=== PATIENT | male | born 1955 | race Caucasian/White ===

== ENCOUNTER → 2020-01-24 09:09 | Outpatient (CLI) | payer MEDICARE, SELFPAY ==
--- NOTE | ~2020-01-24 | XR_ITS ---
EXAMINATION: XR chest 2V DATE: 01/24/2020 09:28 INDICATION: Shortness of breath. TECHNIQUE: Frontal and lateral views of the chest were obtained. COMPARISON: Chest CT 02/10/2017 FINDINGS: There is mild atelectasis in the lower lung zones. No pleural effusion or pneumothorax. The heart size is normal. IMPRESSION: 1. Mild atelectasis in the lower lung zones. Reviewed, dictated and finalized at location A.
== END ==
PROVIDERS: PCP Internal Medicine; Visit Provider Internal Medicine
DX: R06.02 Shortness of breath (principal); R91.8 Other nonspecific abnormal finding of lung field
CPT/HCPCS: 71046

== ENCOUNTER → 2020-11-19 06:55 | Outpatient (CLI) | payer MEDICARE, SELFPAY ==
[2020-11-19 17:21] LABS: SARS-CoV-2 RNA PCR Negative
== END ==
PROVIDERS: PCP Internal Medicine; Visit Provider Internal Medicine
DX: Z20.822 Contact with and (suspected) exposure to COVID-19 (principal); R68.89 Other general symptoms and signs
CPT/HCPCS: C9803; U0003; U0005

== ENCOUNTER 2021-01-07 07:28 | Outpatient (CLI) | payer MEDICARE, SELFPAY ==
--- NOTE | ~2021-01-07 | US_ITS ---
EXAMINATION: US aorta [facility] DATE: 01/07/2021 08:03 INDICATION: Abdominal aortic aneurysm screening. TECHNIQUE: Grayscale, color Doppler, and pulsed Doppler images of the aorta and common iliac arteries were obtained. COMPARISON: None. FINDINGS: The aorta is normal in caliber. The right common iliac artery is normal in caliber. The left common i liac artery is normal in caliber. IMPRESSION: 1. No abdominal aortic aneurysm. Reviewed, dictated and finalized at location A.
--- NOTE | 2021-01-07 07:53 | ECG_ITS ---
Measurements Intervals [place] Rate: 79 P: 67 OR: 162 QRS: 65 QRSD: 112 T: 72 QT: 418 QTc: 481 Interpretive Statements SINUS RHYTHM INTRAVENTRICULAR CONDUCTION DELAY BORDERLINE ST-T WAVE ABNORMALITY- INF/HIGH LAT LEADS BORDERLINE ECG Electronically Signed On 01-07-2021 8:06:32 CDT by Bertrand Cheatham D.O.
== END 2021-01-07 07:29 | disposition home or self-care (01) ==
PROVIDERS: PCP Internal Medicine; Visit Provider Internal Medicine
DX: Z13.6 Encounter for screening for cardiovascular disorders (principal); I45.9 Conduction disorder, unspecified
CPT/HCPCS: 76706; 93005

== ENCOUNTER 2022-02-13 06:03 | Emergency (ER) | payer MEDICARE, SELFPAY ==
--- NOTE | ~2022-02-13 | CT_ITS ---
IMPRESSION: 1. No acute intracranial abnormality. EXAMINATION: CT brain wo con INDICATION: Diplopia COMPARISON: None TECHNIQUE: Standard unenhanced head CT. The dose-length product (DLP) was 605.33 mGy-cm. The mA was a djusted according to patient size. Iterative reconstruction technique was employed. FINDINGS: There is no intracranial hemorrhage, acute infarction, or abnormal mass lesion. The ventric les are normal. There is no abnormal mass effect or midline shift. The cintron-white matter differentiat ion is normal. The basal cisterns are patent. The orbits are normal. The paranasal sinuses, mastoids and calvarium are normal. IMPRESSION: 1. No acute intracranial abnormality. Reviewed, dictated and finalized at location A.
[2022-02-13 06:07] VITALS: BP 183/127; PULSE 83; RESP 18; TEMP 36.4; O2SAT 98
--- NOTE | 2022-02-13 07:06 | ECG_ITS ---
Measurements Intervals [place] Rate: 88 P: 61 OR: 163 QRS: 61 QRSD: 110 T: 71 QT: 388 QTc: 472 Interpretive Statements SINUS RHYTHM COMPARED TO ECG 01/07/2021 07:59:04 NO SIGNIFICANT CHANGES Electronically Signed On 02-13-2022 9:28:05 CDT by Hodan Holley M.D.
--- NOTE | 2022-02-13 07:07 | ED.EYEPROB ---
HPI - Eye Problem General Chief complaint: Eye Problems Stated complaint: eye difficulty Time Seen by Provider: 02/13/22 06:52 History of Present Illness HPI Narrative: 67-year-old male presenting to the emergency department for evaluation of double vision that started approximately 5 PM last night. Patient states that he found he was looking at the phone and realized that he had acute onset of double vision. Double vision is worse when looking to the right. Patient denies any other change in vision. Patient denies any other symptoms. Patient denies any headache. Patient has had issues with hypertension. Patient does take medications for his blood pressure, patient reports he did miss his blood pressure medication this morning. Related Data Home Medications Medication Instructions Recorded Confirmed loratadine 10 mg tablet 10 mg PO DAILY 09/14/19 10/26/21 Allergies Allergy/AdvReac Type Severity Reaction Status Date / Time No Known Allergies Allergy Verified 02/13/22 08:50 Review of Systems Review of Systems: CONSTITUTIONAL: Denies fever, chills, or sweats. EYES: See HPI ENT: Denies rhinorrhea, congestion, sore throat, or otalgia. CARDIOVASCULAR: Denies chest pain, palpitations, or edema. RESPIRATORY: Denies cough or dyspnea. GASTROINTESTINAL: Denies abdominal pain, nausea, vomiting, or diarrhea. GENITOURINARY: Denies dysuria or hematuria. SKIN: Denies rash or itching. MUSCULOSKELETAL: Denies back pain, joint pain, or myalgia. NEUROLOGIC: Denies headache, numbness, or weakness. [facility] Family History Family History Father Family history of coronary artery disease Social History Social History Smoking status: Former smoker Smoking end date: 09/12/12 Alcohol intake: current Exam Narrative: APPEARANCE: Well appearing, no pain, no distress, well-nourished. HEAD: normocephalic, atraumatic. EYES: No double vision when looking to the left. Double vision when looking to the right. Left eye does not track well past the midline when looking to the right NOSE: Normal no drainage EARS:TMS clear with good light reflex. THROAT: Pharynx clear, no exudate. NECK: Supple. No adenopathy, no masses. RESPIRATORY: Airway patent, respirations nonlabored. Clear to auscultation bilaterally, no rales, rhonchi, wheezing. CARDIOVASCULAR: Regular rate and rhythm without murmurs rubs or gallops. ABDOMINAL: Soft, nontender, nondistended, normal bowel sounds MUSCULOSKELETAL: Moves all extremities. Strength/ROM intact, No edema, No calf tenderness. NEURO: Alert. Cranial nerves II through XII intact. Good gait. Good coordination SKIN: Warm, dry. Normal Color PSYCHIATRIC: Normal affect/mood. Course Course Emergency Course: Patient was updated on the results of his CT scan. 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 Case was discussed with neurology at [facility], and ophthalmology at [facility]. Patient was accepted for transfer to the emergency department. Consultations Consultation #1: [facility] neurology, Dr. Carrington was consulted and also felt this was a cranial nerve issue. He did recommend follow-up with ophthalmology. Ophthalmology was paged for consult. Consultation #2: Dr Sanon for ophthalmology did recommend transfer to the ED for further evaluation. Patient was amenable to this. Patient declined transport by ambulance and prefers transport by private vehicle. The risks of this were discussed. Case was also discussed Dr. Montes in the ED. Prior to discharge patient's blood pressure was improved. Vital Signs Vital signs: Vital Signs Temperature 97.6 F 02/13/22 06:07 Pulse Rate 83 02/13/22 06:07 Respiratory Rate 18 02/13/22 06:07 Blood Pressure 183/127 H 02/13/22 06:07 Pulse Oximetry 98 02/13/22 06:07 Oxygen Delivery Room Air 02/13/22 06:07 Temperature 97.6 F 02/13/22 06:07 Pulse Rate
[2022-02-13 07:32] VITALS: BP 189/127; PULSE 89; RESP 18; O2SAT 96
[2022-02-13 08:06] LABS: Basophils Percent Auto 0.5 % (0.2-1.2); Eosinophils Absolute Auto 0.2 K/mm3 (0-0.3); Hematocrit 44.7 % (42.0-52.0); Hemoglobin 14.3 g/dL (14.0-18.0); Immature Granulocyte Absolute 0.02 K/mm3 (0.00-0.031); Immature Granulocyte Percent A 0.3 % (0-0.5); Lymphocytes Absolute Auto 1.36 K/mm3 (0.9-3.2); Lymphocytes Percent Auto 22.7 % (18.3-44.2); Mean Corpuscular Hemoglobin 28.3 pg (26-34); Mean Corpuscular Volume 88.3 fl (80-100); Mean Platelet Volume 9.7 fl (7.4-10.4); Monocytes Absolute Auto 0.6 K/mm3 (0.1-0.6); Monocytes Percent Auto 9.8 % (2.6-8.5); Neutrophils Absolute Auto 3.8 K/mm3 (1.3-6.7); Neutrophils Percent Auto 62.7 % (45.5-73.1); Platelet Count Result 222 k/mm3 (150-375); Red Blood Count 5.06 M/mm3 (4.6-6.20); Red Cell Distribution Width 14.7 % (11.5-14.5)
[2022-02-13 08:16] LABS: INR 0.9; Partial Thromboplastin Time 26.4 SECONDS (22.3-36.8); Prothrombin Time 12.2 Seconds (11.1-14.7)
[2022-02-13 08:19] LABS: Alanine Aminotransferase 52 U/L (6-50); Albumin Level 4.4 g/dL (3.5-5.1); Alkaline Phosphatase 77 U/L (38-126); Anion Gap 6 mmol/L (8-16); Aspartate Amino Transferase 44 U/L (17-59); Bilirubin,Total 0.2 mg/dL (0.2-1.3); Blood Urea Nitrogen 15 mg/dL (9-20); Calcium 8.9 mg/dL (8.4-10.2); Carbon Dioxide 25 mmol/L (22-30); Chloride 107 mmol/L (98-107); Estimated CRCL calculation 82 ml/min; Estimated Glomerular Filt Rate > 60; Glucose 121 mg/dL (65-110); Potassium 4.5 mmol/L (3.4-5.0); Sodium 138 mmol/L (137-145)
[2022-02-13] MEDS: LOSARTAN POTASSIUM 100 MG TABLET PO (09:04)
[2022-02-13] MEDS: hydrALAZINE HCL 20 MG/ML VIAL 10 MG IV PUSH ×2 (09:06→10:24)
[2022-02-13 09:11] VITALS: BP 191/125; PULSE 92; RESP 18; O2SAT 96
[2022-02-13 09:49] VITALS: BP 176/115; PULSE 93; RESP 18; O2SAT 97
[2022-02-13 10:25] VITALS: BP 186/125
--- NOTE | 2022-02-13 10:26 | PC.NURSE ---
Report to NICK Farnsworth at [facility].
[2022-02-13 10:42] VITALS: BP 162/120; PULSE 100; RESP 20; O2SAT 97
--- NOTE | 2022-02-13 10:43 | PC.NURSE ---
Pt declined EMS transport and family will drive pt to [facility] ER by private vehicle.
== END 2022-02-13 10:50 | disposition short-term general hospital (02) ==
PROVIDERS: Emergency Provider Emergency Medicine; PCP Internal Medicine
DX: H49.00 Third [oculomotor] nerve palsy, unspecified eye (principal); I10 Essential (primary) hypertension; Z87.891 Personal history of nicotine dependence
CPT/HCPCS: 36415; 70450; 80053; 84443; 85025; 85610; 85730; 93005; 96374; 96376; 99284; A9270; J0360

== ENCOUNTER → 2022-04-26 02:17 | Outpatient (CLI) | payer MEDICARE, SELFPAY ==
[2022-04-26 11:08] LABS: SARS-CoV-2 RNA PCR Negative
== END ==
PROVIDERS: PCP Family Medicine; Visit Provider Internal Medicine Critical Care Medicine
DX: R68.89 Other general symptoms and signs (principal); Z20.822 Contact with and (suspected) exposure to COVID-19
CPT/HCPCS: C9803; U0003; U0005

== ENCOUNTER 2022-05-10 13:12 | Emergency (ER) | payer MEDICARE, SELFPAY ==
[2022-05-10 13:31] VITALS: BP 144/93; PULSE 83; RESP 20; TEMP 36.4; O2SAT 94
--- NOTE | 2022-05-10 13:58 | ED.URI ---
HPI - URI/Sore Throat General Chief Complaint: Shortness of Breath/Dyspnea Stated Complaint: Shortness Of Breathe Time Seen by Provider: 05/10/22 13:59 Source: patient, RN notes reviewed and old records reviewed Mode of arrival: ambulatory Limitations: no limitations History of Present Illness HPI Narrative: 67-year-old male with a history of a stroke in January, hypertension, high cholesterol presents to the [facility] with increasing shortness of breath. Mild symptoms started at the end of January when he was discharged from the hospital post stroke. Over the last couple weeks the shortness of breath, edema to the bilateral lower legs have gotten worse. Patient is unable to lay flat over the last couple of weeks. Describes a chest fullness without chest pain. Unable to walk more than 20 feet without getting short of breath Related Data Home Medications Medication Instructions Recorded Confirmed aspirin 81 mg chewable tablet 81 mg PO DAILY 02/22/22 02/22/22 atorvastatin 40 mg tablet 40 mg PO DAILY 02/22/22 02/22/22 Allergies Allergy/AdvReac Type Severity Reaction Status Date / Time No Known Allergies Allergy Verified 04/15/22 12:02 Review of Systems Review of Systems: All systems reviewed & are unremarkable except as noted in HPI and below Constitutional: Constitutional: Reports no additional constitutional complaints, Denies chills and Denies fever(s) Eyes: Eyes: Reports no additional eye complaints ENT: Reports system reviewed and no additional complaints, except as documented Cardiovascular: Cardiovascular: Reports as per HPI, Denies chest pain and Denies rapid heart rate Respiratory: Respiratory: Reports as per HPI, Denies chest congestion, Denies cough, Reports dyspnea and Reports wheezing Gastrointestinal: Gastrointestinal: Reports no additional gastrointestinal complaints Musculoskeletal: Musculoskeletal: Reports as per HPI Integumentary/Breasts: Skin/Breast: Reports system reviewed and no additional complaints, except as docu Neurologic: Reports system reviewed and no additional complaints, except as documented Psychiatric: Psychiatric: Reports no additional psychiatric complaints Allergic/Immunologic: Allergic/Immunologic: Reports no additional allergic/immunologic complaints [facility] Past Medical History Medical History (Updated 05/10/22 @ 14:31 by Stacey Keating APRN) Asthma COPD with asthma Diabetes Dyspnea History of smoking 30 or more pack years Hypertension Obesity (BMI 30.0-34.9) RIND (reversible ischemic neurologic deficit) SOB (shortness of breath) on exertion Family History Family History Father Family history of coronary artery disease Social History Social History Smoking status: Former smoker Smoking end date: 09/12/12 Alcohol intake: current Comments At the time of my signature, I reviewed and agree with the nursing past medical, surgical, social, and family history. There is no relevant family history pertinent to the patient complaint. Exam Const: General: no acute distress, well developed, alert, ill appearing chronically, uncomfortable and well groomed; No diaphoretic Nutritional Appearance: well nourished and obese morbidly obese Orientation/consciousness: patient oriented x3 Limitations: no limitations HENMT: Head: normal to inspection Ears: external ears normal Eyes: General: appearance normal, both eyes and all related structures Pupils: Equal, round and reactive pupils present Neck: Neck: normal visual inspection, no lymphadenopathy and no meningeal signs Chest: Chest palpation & inspection: normal inspection of the chest Resp: Effort & Inspection: normal respiratory effort and no use of accessory muscles Auscultation: crackles, no rales, no rhonchi and wheezes Cardio: Rate: regular rate Rhythm: regular rhythm Peripheral pulses: radial pul
--- NOTE | 2022-05-10 14:01 | ECG_ITS ---
Measurements Intervals [place] Rate: 82 P: 79 [place]: 185 QRS: 66 QRSD: 116 T: 69 QT: 394 QTc: 462 Interpretive Statements SINUS RHYTHM WITH OCCASIONAL VENTRICULAR PREMATURE COMPLEXES MINOR T-WAVE ABNORMALITY] COMPARED TO ECG 02/13/2022 07:37:14 PVC IS NOW SEEN Electronically Signed On 05-10-2022 17:10:15 CDT by Hermelindo Baker M.D.
== END 2022-05-10 14:18 | disposition short-term general hospital (02) ==
PROVIDERS: Emergency Provider Nurse Practitioner; PCP Family Medicine
DX: R06.02 Shortness of breath (principal); R60.0 Localized edema; Z87.891 Personal history of nicotine dependence; J44.9 Chronic obstructive pulmonary disease, unspecified; E11.9 Type 2 diabetes mellitus without complications; I10 Essential (primary) hypertension; Z86.73 Personal history of transient ischemic attack (TIA), and cerebral infarction without residual deficits; Z79.82 Long term (current) use of aspirin; E66.9 Obesity, unspecified; Z68.32 Body mass index [BMI] 32.0-32.9, adult
CPT/HCPCS: 93005; 99213; G0463

== ENCOUNTER 2022-05-10 14:33 | Emergency (ER) | payer MEDICARE, SELFPAY ==
--- NOTE | ~2022-05-10 | XR_ITS ---
EXAMINATION: XR chest 1V portable Exam Date/Time: 05/10/2022 15:30 CDT HISTORY: sob Comparison: 01/24/2020. RESULT: Lines, tubes, and devices: None. Lungs and pleura: Mild senescent change, otherwise clear. Cardiomediastinal silhouette: Stable. Other: No acute osseous or upper abdominal finding. IMPRESSION: No acute cardiopulmonary process. Reviewed, dictated and finalized at location K.
--- NOTE | ~2022-05-10 | CT_ITS ---
EXAMINATION: CTA chest PE protocol DATE: 05/10/2022 16:51 INDICATION: Increasing shortness of breath for one week. History of COPD. TECHNIQUE: Computed tomography angiography (CTA) of the chest was performed with 100 mL Omnipaque-350 intravenous contrast timed to evaluate the pulmonary arteries. Coronal maximum intensity projection 3D-reconstructions were created by the technologist. Automated exposure control and iterative reconst ruction technique were employed. Exam dose: 1434.33 mGy-cm total exam DLP. COMPARISON: 05/10/2022 portable AP chest 02/10/[address] lung cancer screening FINDINGS: There is moderate opacification of the pulmonary arteries on the second injection and repea t scan. No pulmonary embolism is evident. No thoracic aortic aneurysm or dissection. Normal heart size. No pericardial or pleural effusion. 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 Moderate emphysematous changes, most prominent in the upper lung zones, particularly in the apices. N o pulmonary infiltrate or consolidation.. Normal morphology of the adrenal glands. There is hepatic steatosis. Status post cholecystectomy. Included skeletal structures are unremarkable. IMPRESSION: COPD; no evidence of pulmonary embolism Reviewed, dictated and finalized at Location A. Reviewed, dictated and finalized at location B.
[2022-05-10 14:45] VITALS: BP 168/96; PULSE 92; RESP 16; TEMP 36.6; O2SAT 94
[2022-05-10 15:01] VITALS: BP 133/86; PULSE 89; RESP 18; O2SAT 94
--- NOTE | 2022-05-10 15:02 | ECG_ITS ---
Measurements Intervals [place] Rate: 91 P: 76 [place]: 180 QRS: 64 QRSD: 110 T: 68 QT: 376 QTc: 463 Interpretive Statements SINUS RHYTHM WITHIN NORMAL LIMITS COMPARED TO ECG 05/10/2022 14:11:47 NO PVCS Electronically Signed On 05-10-2022 17:12:23 CDT by Hermelindo Baker M.D.
[2022-05-10 15:15] LABS: Basophils Absolute Auto 0.1 K/mm3 (0.0-0.1); Basophils Percent Auto 0.8 % (0.2-1.2); Eosinophils Absolute Auto 0.7 K/mm3 (0-0.3); Eosinophils Percent Auto 9.2 % (0-4.4); Hematocrit 40.2 % (42.0-52.0); Hemoglobin 12.9 g/dL (14.0-18.0); Immature Granulocyte Absolute 0.04 K/mm3 (0.00-0.031); Immature Granulocyte Percent A 0.5 % (0-0.5); Mean Corpuscular HGB Conc 32.1 g/dl (32-36); Mean Corpuscular Hemoglobin 28.2 pg (26-34); Mean Platelet Volume 9.7 fl (7.4-10.4); Monocytes Absolute Auto 0.6 K/mm3 (0.1-0.6); Monocytes Percent Auto 7.9 % (2.6-8.5); Neutrophils Absolute Auto 4.6 K/mm3 (1.3-6.7); Neutrophils Percent Auto 62.6 % (45.5-73.1); Platelet Count Result 302 k/mm3 (150-375); Red Blood Count 4.57 M/mm3 (4.6-6.20); Red Cell Distribution Width 14.3 % (11.5-14.5); White Blood Count 7.4 K/mm3 (4.5-10.0)
[2022-05-10 15:28] LABS: INR 0.9; Prothrombin Time 11.9 Seconds (11.1-14.7)
[2022-05-10 15:29] LABS: Partial Thromboplastin Time 26.2 SECONDS (22.3-36.8)
[2022-05-10 15:30] LABS: Alveolar/Arterial O2 Gradient 56.6 mmHg; Carboxyhemoglobin 0.5 % THb (0-2.0); Fractional Inspired Oxygen 21 %; HCO3 ABG 28.8 mEq/l (22.0-26.0); Methemoglobin ABG 0.3 %THb (0-1.5); Oxygen Content ABG 12.6 %vol (16.0-22.0); PCO2 ABG 48.8 mmHg (35.0-45.0); PO2 FiO2 Ratio Arterial Blood 1.65 %; Total Hemoglobin 13.6 g/dL (12.0-18.0); pH ABG 7.389 (7.350-7.450)
[2022-05-10 15:32] LABS: Alanine Aminotransferase 74 U/L (6-50); Albumin Level 4.7 g/dL (3.5-5.1); Alkaline Phosphatase 81 U/L (38-126); Anion Gap 10 mmol/L (8-16); Aspartate Amino Transferase 54 U/L (17-59); Bilirubin,Total 0.4 mg/dL (0.2-1.3); Blood Urea Nitrogen 14 mg/dL (9-20); Calcium 9.5 mg/dL (8.4-10.2); Carbon Dioxide 27 mmol/L (22-30); Chloride 97 mmol/L (98-107); Estimated CRCL calculation 76 ml/min; Estimated Glomerular Filt Rate > 60; Glucose 105 mg/dL (65-110); Sodium 134 mmol/L (137-145)
[2022-05-10 15:33] VITALS: BP 139/97; PULSE 92; RESP 16
--- NOTE | 2022-05-10 15:33 | ED.SOB ---
HPI - SOB/Dyspnea General Chief Complaint: Shortness of Breath/Dyspnea Stated Complaint: bilateral LE swelling and SOB Time Seen by Provider: 05/10/22 15:24 History of Present Illness HPI Narrative: Pt presents with worsening SOB over the last two weeks but much worse over the last few days to the point that he has trouble walking across the room without getting very SOB. Pt also has edema to his legs for a couple of weeks. Pt denies CP. Pt says most of this has occured since he had a small stroke and was placed on BP meds. Related Data Home Medications Medication Instructions Recorded Confirmed aspirin 81 mg chewable tablet 81 mg PO DAILY 02/22/22 05/10/22 atorvastatin 40 mg tablet 40 mg PO DAILY 02/22/22 05/10/22 Allergies Allergy/AdvReac Type Severity Reaction Status Date / Time No Known Allergies Allergy Verified 05/10/22 15:01 Review of Systems Review of Systems: All systems reviewed & are unremarkable except as noted in HPI and below PMFSH Past Medical History Medical History (Updated 05/10/22 @ 18:10 by William Brandon III, DO) Asthma COPD with asthma Diabetes Dyspnea History of smoking 30 or more pack years Hypertension Obesity (BMI 30.0-34.9) RIND (reversible ischemic neurologic deficit) SOB (shortness of breath) on exertion Family History Family History Father Family history of coronary artery disease Social History Social History Smoking status: Former smoker Smoking end date: 09/12/12 Alcohol intake: current Exam Const: General: healthy appearing and no acute distress Nutritional Appearance: well nourished Orientation/consciousness: patient oriented x3 Limitations: no limitations Neck: Neck: normal visual inspection, no lymphadenopathy and no meningeal signs Resp: Effort & Inspection: tachypneic Auscultation: wheezes Cardio: Rate: regular rate Rhythm: regular rhythm GI: GI Palp: Yes Soft to palpation Auscultation: normal bowel sounds Skin: General skin exam: normal color Rashes: no rashes Wounds: no wounds Neuro: General: patient oriented x3 and no focal motor deficits Speech: normal speech Gait exam (Neuro): Normal gait present Extrem: General: edema (2 plus edema to b/l LE) Psych: Mental Status: mental status grossly normal Affect: normal affect Attitude: cooperative Course Vital Signs Vital signs: Vital Signs Temperature 97.8 F 05/10/22 14:45 Pulse Rate 92 05/10/22 14:45 Respiratory Rate 16 05/10/22 14:45 Blood Pressure 168/96 H 05/10/22 14:45 Pulse Oximetry 94 05/10/22 14:45 Oxygen Delivery Room Air 05/10/22 14:45 Temperature 97.8 F 05/10/22 14:45 Pulse Rate 92 05/10/22 15:33 Respiratory Rate 16 05/10/22 15:33 Blood Pressure 139/97 H 05/10/22 15:33 Pulse Oximetry 94 05/10/22 15:01 Oxygen Delivery Room Air 05/10/22 14:45 MDM - SOB/Dyspnea Differential Diagnosis Differential diagnosis: Likely congestive heart failure, community acquired pneumonia and asthma with exacerbation Lab Data Attestation: I reviewed the patient's lab results. Result diagrams: 05/10/22 15:04 05/10/22 15:04 Labs: Lab Results 05/10/22 05/10/22 05/10/22 Range/Units 15:04 15:04 15:04 WBC 7.4 (4.5-10.0) K/mm3 RBC 4.57 L (4.6-6.20) M/mm3 Hgb 12.9 L (14.0-18.0) g/dL Hct 40.2 L (42.0-52.0) % MCV 88.0 (80-100) fl MCH 28.2 (26-34) pg MCHC 32.1 (32-36) g/dl RDW 14.3 (11.5-14.5) % Plt Count 302 (150-375) k/mm3 MPV 9.7 (7.4-10.4) fl Immature Gran % (Auto) 0.5 (0-0.5) % Neut % (Auto) 62.6 (45.5-73.1) % Lymph % (Auto) 19.0 (18.3-44.2) % Cobb % (Auto) 7.9 (2.6-8.5) % Eos % (Auto) 9.2 H (0-4.4) % Baso % (Auto) 0.8 (0.2-1.2) % Lymph # (Auto) 1.40 (0.9-3.2) K/mm3 Cobb # (Auto) 0.6 (0.1-0.6) K/mm3 Eos # (Au
[2022-05-10 15:39] LABS: Oxygen Saturation ABG 90.9 % (95.0-100.0); Oxyhemoglobin 90.3 % THb (90.0-100.0); PO2 ABG 59.9 mmHg (80.0-100.0)
[2022-05-10 15:40] LABS: Modified Allen's Test Pass; Site Drawn RIGHT RADIAL
[2022-05-10 15:41] LABS: Device ROOM AIR
[2022-05-10] MEDS: IPRATROPIUM BR 0.02% INH SOLN 0.5 MG/2.5 ML VIAL INHALATION (15:42)
[2022-05-10] MEDS: ALBUTEROL SULFATE NEB 2.5 MG/3 ML INH 5 MG INHALATION (15:42)
[2022-05-10 15:44] LABS: NT Pro B Type Natriuretic Pept 45 pg/mL (5-100); Troponin I < 0.012 ng/mL (0.000-0.034)
[2022-05-10] MEDS: FUROSEMIDE INJ 40 MG/4 ML VIAL IV PUSH (15:44)
== END 2022-05-10 18:30 | disposition home or self-care (01) ==
PROVIDERS: Emergency Provider Emergency Medicine; PCP Family Medicine
DX: J44.1 Chronic obstructive pulmonary disease with (acute) exacerbation (principal); E11.9 Type 2 diabetes mellitus without complications; I10 Essential (primary) hypertension; E66.9 Obesity, unspecified; Z68.32 Body mass index [BMI] 32.0-32.9, adult; Z79.82 Long term (current) use of aspirin; Z87.891 Personal history of nicotine dependence
CPT/HCPCS: 36415; 36600; 71045; 71275; 80053; 82375; 82805; 83050; 83880; 84484; 85025; 85610; 85730; 93005; 96374; 99284; J1940; Q9967

== ENCOUNTER 2022-05-27 08:08 | Outpatient (CLI) | payer MEDICARE, SELFPAY ==
--- NOTE | ~2022-05-27 | US_ITS ---
EXAMINATION: US abdomen limited DATE: 05/27/2022 08:43 INDICATION: Elevated liver enzymes TECHNIQUE: Multiple grayscale and Doppler ultrasound images of the abdomen were obtained. COMPARISON: None available FINDINGS: Bowel gas obscures visualization of the pancreas. The visualized portions of the pancreas a re unremarkable. The liver demonstrates increased echogenicity, heterogenous echotexture, and decreas ed through transmission. No surface nodularity. Normal hepatopetal flow in the main portal vein. The gallbladder is surgically absent. The normal common bile duct measures 4 mm. IMPRESSION: 1. Diffuse hepatic steatosis. Reviewed, dictated and finalized at location B.
== END 2022-05-27 08:09 | disposition home or self-care (01) ==
LOC: ANHIMG 08:10
PROVIDERS: PCP Family Medicine; Visit Provider Family Medicine
DX: R19.00 Intra-abdominal and pelvic swelling, mass and lump, unspecified site (principal); R74.8 Abnormal levels of other serum enzymes; K76.0 Fatty (change of) liver, not elsewhere classified
CPT/HCPCS: 76705

== ENCOUNTER 2022-06-01 13:14 | Outpatient (CLI) | payer MEDICARE, SELFPAY ==
--- NOTE | 2022-06-01 13:29 | ECHO_ITS ---
Patient Info Name: Earl Chew Age: 67 years : 1955 Gender: Male Ht: 69 in Wt: 235 lbs BSA: 2.32 m2 HR: 98 bpm BP: 149 / 96 mmHg Technical Quality: Fair Exam Date: 06/01/2022 1:59 PM Exam Location: [facility] Patient Status: Outpatient Admit Date: 06/01/2022 Staff Ordering Physician: Saravanan Saini DO Valet Attendant: Leticia Rico RDCS Attending Provider: Saravanan Saini DO Referring Physician: Yeny MATHEWS; Exam Type: CA echo doppler color flow Study Info Indications R06.00 - Dyspnea, unspecified Complete two-dimensional, color flow and Doppler transthoracic echocardiogram is performed. Summary 1. Complete two-dimensional, color flow and Doppler transthoracic echocardiogram is performed. 2. Left ventricular chamber dimension is normal. 3. Left ventricular systolic function is normal, estimated at 55-60%. 4. The left ventricular diastolic function is grade I diastolic dysfunction. 5. E/e' 7 is not elevated. 6. Global longitudinal strain is abnormal at -15.1%. 7. There is mild aortic valve sclerosis. 8. No pulmonary hypertension, estimated pulmonary arterial systolic pressure is 23 mmHg. Left Ventricle E/e' 7 is not elevated. Global longitudinal strain is abnormal at -15.1%. Left ventricular chamber dimension is normal. Left ventricular systolic function is normal, estimated at 55-60%. The left ventricular diastolic function is grade I diastolic dysfunction. Right Ventricle Right ventricular systolic function is normal and with normal TAPSE 1.9 cm. Right ventricular chamber dimension is normal. Left Atria Left atrial chamber dimension is normal. Right Atria Right atrial chamber dimension is normal. Aortic Valve The aortic valve is trileaflet. There is mild aortic valve sclerosis. There is no aortic valve stenosis. There is no aortic valve regurgitation. Pulmonic Valve There is no pulmonic regurgitation. Mitral Valve There is no mitral valve stenosis. There is no mitral valve regurgitation. Tricuspid Valve There is no tricuspid valve regurgitation. No pulmonary hypertension, estimated pulmonary arterial systolic pressure is 23 mmHg. Pericardium/Pleural There is no pericardial effusion. Inferior Vena Cava Normal inferior vena cava with >50% collapse upon inspiration consistent with normal right atrial pressure, 5 mmHg. Aorta The aortic root size at the sinus of Valsalva is normal. Left Ventricular Outflow Tract Name Value Normal LVOT 2D LVOT Diameter 2.4 cm LVOT Doppler LVOT Peak Gradient 5 mmHg LVOT Mean Gradient 2 mmHg LVOT VTI 15 cm LVOT VTI/AV VTI Ratio 1.0 LVOT Stroke Volume 69 ml LVOT CO 6.6 l/min LVOT CI 2.9 l/min/m2 Pulmonic Valve Name Value Normal
== END 2022-06-01 13:15 | disposition home or self-care (01) ==
PROVIDERS: PCP Family Medicine; Visit Provider Family Medicine
DX: R06.00 Dyspnea, unspecified (principal)
CPT/HCPCS: 93306

== ENCOUNTER 2022-06-16 12:52 | Outpatient (CLI) | payer MEDICARE, SELFPAY ==
[2022-06-16 19:19] LABS: Anion Gap 7 mmol/L (8-16); Blood Urea Nitrogen 18 mg/dL (9-20); Carbon Dioxide 32 mmol/L (22-30); Chloride 98 mmol/L (98-107); Estimated Glomerular Filt Rate 60; Glucose 117 mg/dL (65-110); Sodium 137 mmol/L (137-145)
== END 2022-06-16 12:53 | disposition home or self-care (01) ==
LOC: ANHGOSHLAB 12:55
PROVIDERS: PCP Family Medicine; Visit Provider Family Medicine
DX: I10 Essential (primary) hypertension (principal)
CPT/HCPCS: 36415; 80048

== ENCOUNTER 2022-06-24 14:09 | Outpatient (CLI) | payer MEDICARE, SELFPAY ==
--- NOTE | ~2022-06-24 | XR_ITS ---
EXAMINATION: XR chest 2V DATE: 06/24/2022 14:58 INDICATION: Shortness of breath, unspecified TECHNIQUE: PA and lateral views of the chest are obtained. COMPARISON: 05/10/2022 FINDINGS: The lungs are free of acute opacities. No pleural effusion or pneumothorax. The cardiomedia stinal silhouette is normal. There is mild thoracic spondylosis. IMPRESSION: 1. No acute cardiopulmonary abnormality. Reviewed, dictated and finalized at location F.
== END 2022-06-24 14:10 | disposition home or self-care (01) ==
PROVIDERS: PCP Family Medicine; Visit Provider Family Medicine
DX: R06.00 Dyspnea, unspecified (principal)
CPT/HCPCS: 71046

== ENCOUNTER 2022-09-28 08:40 | Outpatient (CLI) | payer MEDICARE, SELFPAY ==
--- NOTE | 2022-10-05 14:33 | WPDHOMESLEEP ---
Sleep Study - Home Unattended Date of Study: 09/28/22 Ordering Provider: ROSETTA Buckner Interpreting Provider: Marie Ibanez, DO Home Sleep Study Type: Watch PAT Height: 1.75 m Weight: 111.13 kg Body Mass Index: 36.1 Neck Circumference (inches): 17.25 [place]: 9 Reason for Sleep Study Loud snoring, nighttime awakenings Sleep History The patient is a 67-year-old male with asthma, COPD, diabetes, hypertension, history of stroke and history of tobacco use that had a sleep study ordered by the Pulmonary group for evaluation of sleep apnea. The patient occasionally awakens from sleep short of breath. He rarely awakens at night with heartburn, belching or cough. He frequently snores loud enough that others complain. He frequently has trouble sleeping when he has a cold. He occasionally wakes up gasping for air throughout the night. He occasionally has breathing problems at night observed by himself or others. He rarely sweats excessively at night. He denies having heart palpitations or irregular heartbeats during the night. He occasionally falls asleep during the day. He rarely falls asleep while driving. He rarely experiences loss of muscle tone when extremely emotional. He denies having trouble at school or work due to sleepiness. He denies sleep paralysis. He rarely experiences vivid dreamlike scenes upon awakening or falling asleep. He denies feeling afraid of going to sleep. He rarely has nightmares and rarely remembers his dreams. He occasionally has thoughts racing through his mind. He denies feeling sad or depressed. He rarely has anxiety. He occasionally has muscular tension. He denies noticing parts of his body jerk. He rarely kicks during the night. He rarely has crawling and aching feelings in his legs but occasionally has leg pain during the night. He rarely grinds his teeth during sleep but never awakens with morning jaw pain. He is occasionally bothered by pain during the day but rarely awakened by pain during the night. He occasionally wakes up feeling stiff in the morning. He frequently wakes up with sore or achy muscles. He rarely wakes up with pain in the neck, spine and other joints. He goes to bed between 11:00 p.m. to midnight on both weekdays and weekends. It takes him 15-20 minutes to fall asleep. He wakes up 2-3 times throughout the night to get a drink. He is able to fall back asleep within 15-20 minutes. He wakes up at 5:00 a.m. on both weekdays and weekends. he will stay in bed for a couple minutes after waking up in the morning. He currently lives with his . He does not consume any caffeinated beverages within 2 hours of bedtime. He does not engage in physical exercise before bedtime. He will watch television before falling asleep. He does not take naps in the afternoon or the evening. He drinks 1 cup of coffee per day. He quit smoking cigarettes 5 years ago. He denies alcohol and recreational drug use. [facility] Past Medical History Medical History Asthma COPD with asthma Diabetes Dyspnea History of smoking 30 or more pack years Hypertension Obesity (BMI 30.0-34.9) RIND (reversible ischemic neurologic deficit) SOB (shortness of breath) on exertion Family History Family History Father Family history of coronary artery disease Social History Social History Social History: Caffeine-coffee daily Smoking status: Former smoker Smoking end date: 09/12/12 Alcohol intake: current Alcohol use details: rarely Lack of Transportation: No Lack of Food: Never True Current Housing: I Have Housing Concerned About Future Housing: No Difficulty Paying Gas/Electric Bills: No Difficulty Paying for Meds: No Currently Unemployed: No Education: Decline to Answer Difficulty w/ Childcare or
[2022-10-05 14:38] VITALS: BMI 36.1
--- NOTE | 2023-05-09 10:38 | SLEEP ---
new calls [phone]
== END 2022-09-29 12:49 | disposition home or self-care (01) ==
LOC: ANHCSM 08:41
PROVIDERS: PCP Family Medicine; Visit Provider Physician Assistant
DX: G47.10 Hypersomnia, unspecified (principal); E66.9 Obesity, unspecified; G47.33 Obstructive sleep apnea (adult) (pediatric); R09.02 Hypoxemia
CPT/HCPCS: 95800

== ENCOUNTER 2022-10-26 08:01 | Outpatient (CLI) | payer MEDICARE, SELFPAY ==
--- NOTE | 2022-10-26 12:21 | WPDSIXMINUTE ---
Six Minute Walk Procedure Procedure Performed Pulmonary Stress Test (6 min walk) Six Minute Walk Six Minute Walk: This is a 6 minute walk test. The test was performed and interpreted in accordance with the 2014 ERS/ATS task force guidelines. Findings: The patient's resting room air oxygen saturation measured by pulse oximetry was 90% and heart rate was 93 bpm. Patient ambulated for 305 meters and oxygen saturation remained 89 to 94%. Heart rate at the end of the study was 106 bpm. The patient did not qualify for supplemental oxygen at rest or with ambulation. There are no prior studies for comparison.
--- NOTE | 2022-10-26 12:22 | P.PCNPFT_ITS ---
PFT Procedure Performed PFT Procedure Performed Spirometry with Pre/Post Bronchodilator Plethysmography (Lung Vol) Diffusing Cap (DLCO) Flow Vol Loop PFT Interpretation This is a pulmonary function test with pre and post-bronchodilator spirometry, plethysmography and diffusing capacity. The test was performed and results interpreted in accordance with the 2019 and 2005 ATS/ERS Task Force guidelines respectively using the Global Lung Function Initiative-2012 reference equations. Patient demonstrated good effort and cooperation. Reproducibility criteria were met. The quality of the pre bronchodilator spirometry maneuver was Grade A and post bronchodilator spirometry maneuver was Grade A. Findings: Spirometry: There is decreased maximal expiratory airflow at all lung volumes with concave expiratory flow tracing. The contour the inspiratory flow tracing is normal. The pre bronchodilator FVC is 3.21 L, 73% predicted. The pre bronchodilator FEV1 is 1.21 L, 36% predicted. The pre bronchodilator FEV1: FVC ratio is 38%. The post bronchodilator FVC is 3.02 L, representing a 6% decrease. The post bronchodilator FEV 1 is 1.40 L, representing 190 mL increase which corresponds to a 16% increase. The post bronchodilator FEV1: FVC ratio is 46%. Plethysmography: The total lung capacity is 8.01 L, 114% predicted. The functional residual capacity is 5.55 L, 149% predicted. The residual volume is 4.49 L, 188% predicted. Diffusing capacity: The diffusing capacity unadjusted for hemoglobin and carboxyhemoglobin is 12.4, 46% predicted. The diffusing capacity adjusted for alveolar volume is 2.62, 65% predicted. Impression: There is a severe obstructive abnormality without significant improvement after inhaling a single dose of albuterol As the absolute increase in FEV1 was less than 200 mL. The increase in residual volume is consistent with air trapping from an obstructive abnormality. Hyperinflation is present as demonstrated by the increase in functional residual capacity and is consistent with an obstructive abnormality. The diffusing capacity unadjusted for hemoglo bin and carboxyhemoglobin is moderately decreased and remains mildly decreased when adjusted for alveolar volume. There are no prior studies for comparison
== END 2022-10-26 08:02 | disposition home or self-care (01) ==
LOC: ANHPFT 08:02
PROVIDERS: PCP Family Medicine; Visit Provider Physician Assistant
DX: J44.9 Chronic obstructive pulmonary disease, unspecified (principal); R06.02 Shortness of breath; R94.2 Abnormal results of pulmonary function studies
CPT/HCPCS: 94060; 94618; 94726; 94729

== ENCOUNTER 2022-11-18 08:22 | Outpatient (CLI) | payer MEDICARE, SELFPAY | END 2022-11-19 09:32 | disposition home or self-care (01) | LOC: ANHCSM 08:24 | PROVIDERS: PCP Family Medicine; Visit Provider Physician Assistant | DX: G47.33 Obstructive sleep apnea (adult) (pediatric) (principal) | CPT/HCPCS: 95810; 99199 ==

== ENCOUNTER 2023-02-25 09:30 | Outpatient (RCR) | payer MEDICARE, SELFPAY | END 2023-02-25 23:59 | disposition home or self-care (01) | LOC: ANHCPREHAB 09:30 | PROVIDERS: PCP Family Medicine; Visit Provider Internal Medicine Critical Care Medicine | DX: J44.9 Chronic obstructive pulmonary disease, unspecified (principal) | CPT/HCPCS: 94625 ==

== ENCOUNTER 2023-04-22 09:30 | Outpatient (RCR) | payer MEDICARE, SELFPAY | END 2023-04-22 13:42 | disposition home or self-care (01) | LOC: ANHCPREHAB 09:30 | PROVIDERS: PCP Family Medicine | DX: J44.9 Chronic obstructive pulmonary disease, unspecified (principal) | CPT/HCPCS: 94625 ==

== ENCOUNTER → 2023-06-16 13:31 | Outpatient (CLI) | payer MEDICARE, SELFPAY ==
--- NOTE | ~2023-06-16 | XR_ITS ---
XR chest 2V DATE: 06/16/2023 13:59 INDICATION: Upper respiratory tract disease TECHNIQUE: 2 views COMPARISON: 06/24/2022 2 view chest FINDINGS: Bilateral hyperinflation suggesting obstructive airways disease. No pulmonary infiltrate or consolidation, pleural effusion or pulmonary vascular congestion or pneumo thorax is detected. Normal heart size. Aortic calcification and mild tortuosity. No hilar or mediastinal enlargement. Osteopenia. IMPRESSION: Bilateral hyperinflation; no active cardiopulmonary disease Aortic atherosclerosis Osteopenia Reviewed, dictated and finalized at location L.
== END ==
PROVIDERS: PCP Family Medicine; Visit Provider Family Medicine
DX: J39.8 Other specified diseases of upper respiratory tract (principal); M85.88 Other specified disorders of bone density and structure, other site; I70.0 Atherosclerosis of aorta; R91.8 Other nonspecific abnormal finding of lung field
CPT/HCPCS: 71046

== ENCOUNTER 2023-08-11 09:27 | Outpatient (CLI) | payer MEDICARE, SELFPAY ==
[2023-08-11 15:01] LABS: Basophils Absolute Auto 0.1 K/mm3 (0.0-0.1); Basophils Percent Auto 0.6 % (0.2-1.2); Eosinophils Absolute Auto 0.8 K/mm3 (0-0.3); Eosinophils Percent Auto 10.4 % (0-4.4); Hematocrit 42.2 % (42.0-52.0); Immature Granulocyte Absolute 0.03 K/mm3 (0.00-0.031); Immature Granulocyte Percent A 0.4 % (0-0.5); Lymphocytes Absolute Auto 1.19 K/mm3 (0.9-3.2); Mean Corpuscular HGB Conc 28.4 g/dl (32-36); Mean Corpuscular Hemoglobin 23.8 pg (26-34); Mean Corpuscular Volume 83.6 fl (80-100); Monocytes Absolute Auto 0.9 K/mm3 (0.1-0.6); Monocytes Percent Auto 10.9 % (2.6-8.5); Neutrophils Percent Auto 62.7 % (45.5-73.1); Platelet Count Result 320 k/mm3 (150-375); Red Blood Count 5.05 M/mm3 (4.6-6.20)
[2023-08-11 15:30] LABS: Hypochromasia 1+ (NORMAL); Ovalocytes 1+ (NORMAL); Platelet Estimate Adequate (Adequate); Schistocytes None Seen (NORMAL)
== END 2023-08-11 09:28 | disposition home or self-care (01) ==
LOC: ANHGOSHLAB 09:28
PROVIDERS: PCP Family Medicine; Visit Provider Family Medicine
DX: R53.83 Other fatigue (principal)
CPT/HCPCS: 36415; 85025

== ENCOUNTER 2024-09-13 12:30 | Outpatient (RCR) | payer MEDICARE, SELFPAY | END 2024-09-13 23:59 | disposition home or self-care (01) | LOC: ANHCPREHAB 12:30 | DX: J44.9 Chronic obstructive pulmonary disease, unspecified (principal) | CPT/HCPCS: 94625 ==

== ENCOUNTER 2024-09-28 10:00 | Outpatient (RCR) | payer MEDICARE, SELFPAY | END 2024-09-28 14:46 | disposition home or self-care (01) | LOC: ANHCPREHAB 10:00 | DX: J44.9 Chronic obstructive pulmonary disease, unspecified (principal) | CPT/HCPCS: 94625 ==

== ENCOUNTER 2024-10-12 08:33 | Outpatient (CLI) | payer MEDICARE, SELFPAY ==
--- NOTE | 2024-10-12 12:41 | WPDSIXMINUTE ---
Six Minute Walk Procedure Procedure Performed Pulmonary Stress Test (6 min walk) Six Minute Walk Six Minute Walk: This is a 6 minute walk test. The test was performed and interpreted in accordance with the 2014 ERS/ATS task force guidelines. Of note, patient used a wheeled walker. Findings: The patient's resting room air oxygen saturation measured by pulse oximetry was 96%, the heart rate was 95 bpm, and the modified [place] dyspnea score was 0.5. Patient ambulated for 244 meters and oxygen saturation remained 93 to 94%. At the end of the study the heart rate was 103 bpm and the modified [place] dyspnea score was 3. The patient did not qualify for supplemental oxygen at rest or with ambulation. In comparison to previous 6 minute walk test on 10/26/2022 the patient is now using a wheeled walker and at the ambulatory distance decreased from 305 m to 244 m.
== END 2024-10-12 08:34 | disposition home or self-care (01) ==
DX: J44.9 Chronic obstructive pulmonary disease, unspecified (principal)
CPT/HCPCS: 94618